=== PATIENT | male | born 1955 | race Caucasian/White ===

== ENCOUNTER 2020-04-14 21:28 | Emergency (ER) | payer BC ==
[~2020-04-14] VITALS: Ht 172.7 cm; Wt 79.5 kg
[2020-04-14 21:34] VITALS: Ht 172.7 cm; Wt 79.5 kg
[2020-04-14] MEDS ORDERED: ELIQUIS5 MG PO (21:36)
[2020-04-14] MEDS ORDERED: FUROSEMIDE20 MG PO (21:38)
[2020-04-14] MEDS ORDERED: ENTRESTO 24 MG1 EACH PO (21:38)
[2020-04-14] MEDS ORDERED: LIPITOR40 MG (21:39)
[2020-04-14] MEDS ORDERED: KEFLEX500 MG PO (22:40)
[2020-04-14 22:52] VITALS: BP 133/87
== END 2020-04-14 22:52 | disposition home or self-care (01) ==
LOC: D.ER 21:28
DX: S41.111A Laceration without foreign body of right upper arm, initial encounter (principal); W19.XXXA Unspecified fall, initial encounter; Y93.9 Activity, unspecified; Y92.9 Unspecified place or not applicable